=== PATIENT | female | born 1965 | race Caucasian/White ===

== ENCOUNTER 2017-10-02 12:20 | Emergency (ER) | payer OTHER ==
[~2017-10-02] VITALS: Ht 170.2 cm; Wt 89.0 kg
[~2017-10-02 12:20] MED LIST: IBUP-232 PO; LEVO.1 PO; PAXI40TA PO; TRAZ50TA12 PO
[2017-10-02 12:39] VITALS: BP 138/74; PULSE 74; RESP 16; TEMP 98.8; O2SAT 96
[2017-10-02] MEDS ORDERED: CARV12.52 PO (12:53)
[2017-10-02] MEDS ORDERED: LIPI20TA PO (12:53)
[2017-10-02] MEDS ORDERED: PAXI10TA8 PO (12:53)
[2017-10-02] MEDS ORDERED: LISI-515 PO (12:53)
[2017-10-02] MEDS ORDERED: SODIUM CHLOR 0.9% 1000 ML INJ 1,000 ML IV ONE (13:09)
[2017-10-02] MEDS ORDERED: SODIUM CHLORIDE 0.9% FLUSH 10 ML FLUSH IVF PRN (13:15)
[2017-10-02] MEDS ORDERED: ONDANSETRON HCL 4 MG/2 ML VIAL IV PUSH ONE (13:15)
--- NOTE | 2017-10-02 13:16 | PD ---
HPI . Vomiting Chief Complaint: GI Complaint Time Seen by Provider: 13:01 Travel History International Travel<30 days: No Contact w/Intl Traveler<30days: No Traveled to known affect area: No History of Present Illness HPI Patient presents with a four-day history of nausea and vomiting. She has had a total of 4 episodes of emesis. Her emesis occurs after eating or drinking. She reports dry heaves as well. She denies fever. She denies diarrhea. She is not having any abdominal pain. PFSH Past Medical History Arthritis: No Asthma: No Autoimmune Disease: No Blood Disorders: No Anxiety: No Depression: Yes Heart Rhythm Problems: No Cancer: No Cardiovascular Problems: Yes High Cholesterol: Yes Chemotherapy: No Chest Pain: No Congestive Heart Failure: No COPD: No Cerebrovascular Accident: No Diabetes: No Diminished Hearing: No Endocrine: Yes Fibromyalgia: Yes Gastrointestinal Disorders: No GERD: No Glaucoma: No Genitourinary: No Headaches: Yes Hepatitis: No Hiatal Hernia: No Hypertension: Yes Implanted Vascular Access Dvce: Yes (PAIN -DILAUDID ) Kidney Stones: No Musculoskeletal: No Neurologic: No Psychiatric: No Reproductive: No Respiratory: No Myocardial Infarction: No Radiation Therapy: No Renal Failure: No Seizures: No Sleep Apnea: No Thyroid Disease: Yes Ulcer: No Tetanus Vaccination: > 5 Years Influenza Vaccination: Yes PNEUMOCCOCAL Vaccine (Year): 2 ?: Not Menopausal: Yes : 1 Para: 1 Past Surgical History Abdominal Surgery: No AICD: No Cardiac Surgery: No Ear Surgery: No Endocrine Surgery: Yes (THYROID REMOVED 06/18/2011) Eye Surgery: No Genitourinary Surgery: No Gynecologic Surgery: No Oral Surgery: No Pacemaker: No Thoracic Surgery: No Other Surgery: Yes (BREAST IMPLANTS, COLONOSCOPY) Social History Alcohol Use: Yes (OCCASIONAL GLASS OF WINE) Tobacco Use: No Substance Use: No Allergies-Medications (Allergen,Severity, Reaction): Coded Allergies: No Known Allergies (Verified Adverse Reaction, Unknown, 10/02/17) Reported Meds & Prescriptions Reported Meds & Active Scripts Active Reported Carvedilol 12.5 Mg Tab 12.5 Mg PO BID Lisinopril 20 Mg Tab 20 Mg PO DAILY Lipitor (Atorvastatin Calcium) 20 Mg Tab 20 Mg PO HS Paxil (Paroxetine HCl) 10 Mg Tab 20 Mg PO DAILY Synthroid (Levothyroxine Sodium) 100 Mcg Tab 100 Mcg PO DAILY Review of Systems Except as stated in HPI: all other systems reviewed are Neg General / Constitutional: No: Fever, Chills Gastrointestinal: Positive: Nausea, Vomiting, No: Diarrhea, Abdominal Pain Physical Exam Narrative GENERAL: Awake and alert and in no acute distress. SKIN: Warm and dry. HEAD: Normocephalic/atraumatic. EYES: Pupils are equal. Extraocular movements are intact. ENT: Mucous membranes are moist. NECK: Normal range of motion. CARDIOVASCULAR: Regular rate and rhythm. Heart sounds are normal. RESPIRATORY: Nonlabored respirations. Lungs are clear with full air movement throughout. ABDOMEN: Bowel sounds present. The abdomen is soft and nontender throughout. MUSCULOSKELETAL: Atraumatic. NEUROLOGICAL: Nonfocal. PSYCHIATRIC: Appropriate mood and affect. Data Data Last Documented VS Vital Signs Date Time Temp Pulse Resp B/P (MAP) Pulse Ox O2 Delivery O2 Flow Rate FiO2 10/02/17 12:39 98.8 74 16 138/74 (95) 96 Orders Orders Iv Access Insert/Monitor (10/02/17 13:09) Ondansetron Inj (Zofran Inj) (10/02/17 13:15) Sodium Chlor 0.9% 1000 Ml Inj (Ns 1000 M (10/02/17 13:09) Sodium Chloride 0.9% Flush (Ns Flush) (10/02/17 13:15) MDM Medical Decision Making Medical Screen Exam Complete: Yes Emergency Medical Condition: Yes Differential Diagnosis Differential diagnosis includes but is not limited to viral gastritis, food poisoning, pancreatitis, pneumonia, hepatitis, acute coronary syndrome, Narrative Course This patient presents with nausea and vomiting. She was actually sent to us from urgent care for dehydration. Fluids have been started. She will be given Zofran. I have not initially ordered any labs. The patient is now sound asleep. She has had no further vomiting. Diagnosis Primary Impression: Vomiting Qualified Codes: R11.2 - Nausea with vomiting, unspecified Med/Other Pt SpecificInfo: Prescription(s) given Scripts Ondansetron (Zofran) 4 Mg Tab 4 MG PO Q6HR Y for NAUSEA OR VOMITING, #6 TAB 0 Refills Prov: Tammy Hancock MD 10/02/17 Disposition: DISCHARGE HOME Condition: Stable Tammy Hancock MD Oct 02, 2017 13:16
[2017-10-02] MEDS ORDERED: ZOFR4TAB PO (14:17)
[2017-10-02 14:24] VITALS: BP 111/64; PULSE 68; RESP 16; O2SAT 98
== END 2017-10-02 14:35 | disposition home or self-care (01) ==
LOC: PHED 12:20
DX: R11.2 Nausea with vomiting, unspecified (principal); F32.9 Major depressive disorder, single episode, unspecified; E78.00 Pure hypercholesterolemia, unspecified; M79.7 Fibromyalgia; I10 Essential (primary) hypertension; Z79.899 Other long term (current) drug therapy
CPT/HCPCS: 96361; 96374; 99284; J2405; J7030